=== PATIENT | male | born 1985 | race Caucasian/White ===

== ENCOUNTER 2019-12-03 03:08 | Emergency (ER) | payer SELFPAY ==
[~2019-12-03] VITALS: Ht 175.3 cm; Wt 68.5 kg
[2019-12-03] MEDS ORDERED: BACITRACIN ZINC OINT UDPKT TOP ONE (03:45)
[2019-12-03] MEDS ORDERED: TETANUS, DIPHTHERIA, PERTUSSIS VAC/PF 0.5ML (>7YR OLD) IM ONE (03:45)
[2019-12-03] MEDS ORDERED: LIDOCAINE HCL/PF 1% 10 MG/ML 5ML VIAL IJ ONE (03:45)
[2019-12-03 05:40] VITALS: BP 126/83
== END 2019-12-03 05:42 | disposition home or self-care (01) ==
LOC: ER 03:08
DX: L03.011 Cellulitis of right finger (principal)
CPT/HCPCS: 99282; J3490